=== PATIENT | female | born 2000 | race Caucasian/White ===

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

== ENCOUNTER → 2018-01-22 | Outpatient (CLI) | payer OTHER ==
--- NOTE | 2018-01-22 15:45 | DIAGNOSTIC IMAGING REPORT ---
LUMBAR SPINE 5 VIEWS HISTORY: LOW BACK PAIN COMPARISON: Lumbar spine 05/05/2017. FINDINGS: There is no fracture. No subluxation. Disc spaces are preserved. Posterior fusion defect at L6 which is a transitional vertebra. This demonstrates a hypoplastic disc space at L6 S1. 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 This remains unchanged. IMPRESSION: 1. No fracture or subluxation within the lumbar spine. 2. There are 6 lumbar type vertebral bodies. L6 is demonstrated to be a transitional vertebra. This demonstrates a posterior fusion defect with sclerosis at the bilateral lamina likely due to chronic change. Electronically signed by: Chandana Sheldon M.D. 01/22/2018 3:44 PM Dictated Date/Time: 01/22/2018 3:40 PM
== END | disposition home or self-care (01) ==
LOC: C.RDSM 13:46
PROVIDERS: ATTEND Internal Medicine
DX: M54.5 Low back pain (principal)